=== PATIENT | female | born 1995 | race Caucasian/White ===

== ENCOUNTER → 2017-05-23 19:50 | Observation (INO) ==
[2017-05-23 17:33] LABS: Bilirubin,Urine Negative (Negative); Blood,Urine Small (Negative); Clarity,Urine Cloudy (Clear); Color,Urine Yellow (Yellow); Glucose,Urine (UA) Normal (Normal); Ketones,Urine Negative (Negative); Leukocyte Esterase,Urine Large (Negative); Nitrite,Urine Negative (Negative); PH,Urine 6.5 pH Units (5.0-8.0); Protein,Urine 30 mg/dL (Neg-Trace); Specific Gravity,Urine 1.023 (1.010-1.025); Urobilinogen,Urine Normal (Normal)
[2017-05-23 17:35] LABS: Bacteria,Urine Moderate per hpf (None-Few); Hyaline Casts,Urine None Seen per lpf (None-Few); Squamous Epithelial Cell,Urine Many per lpf (None-Few); WBC,Urine 15-30 per hpf (0-3)
[2017-05-23 17:38] LABS: Amphetamine Screen,Urine Negative ng/mL (Cutoff=1000); Barbiturate Screen,Urine Negative ng/mL (Cutoff=200); Benzodiazepines Screen,Urine Negative ng/mL (Cutoff=200); Cannabinoid Screen,Urine Negative ng/mL (Cutoff = 50); Cocaine Screen,Urine Negative ng/mL (Cutoff= 300); Opiate Screen,Urine Negative ng/mL (Cutoff=300); Phencyclidine Screen,Urine Negative ng/mL (Cutoff=25)
[2017-05-23 18:23] LABS: Basophils # 0.1 K/mcL (0.0-0.2); Basophils % 0.7 %; Eosinophils # 0.4 K/mcL (0.0-0.6); Eosinophils % 2.9 %; Hematocrit 36.3 % (35.3-44.9); Hemoglobin 11.8 g/dL (11.5-15.4); Immature Granulocytes % 1.1 % (0-4); Lymphocytes # 3.1 K/mcL (0.6-4.6); Lymphocytes % 20.7 %; Mean Corpuscular HGB Conc 32.5 g/dL (31.6-35.5); Mean Corpuscular Hemoglobin 28.2 pg (28.0-33.3); Mean Corpuscular Volume 86.6 fL (83.0-100.0); Monocytes # 1.6 K/mcL (0.0-1.3); Monocytes % 10.4 %; Neutrophils # 9.6 K/mcL (1.6-8.9); Platelet Count 284 K/mcL (140-400); Red Blood Count 4.19 M/mcL (3.82-4.97); Red Cell Distribution Width 13.4 % (11.5-14.5); Segmented Neutrophils % 64.2 %
--- NOTE | 2017-05-23 18:36 | OB/GYN Progress Note ---
Date of Encounter: 05/23/17 Time of Encounter: 18:34 - Assessment and Plan (1) 34 weeks gestation of Current Visit: No Status: Acute Admitted for observation for PTL (2) Abdominal pain affecting Current Visit: No Status: Acute labor evaluation (3) Non-stress test reactive Current Visit: No Status: Acute 135 bpm, moderate variability, + 15x15 accels, no decels. (4) UTI (urinary tract infection) in in third trimester Current Visit: Yes Status: Acute CBC drawn, Rx given for Macrobid (5) Dehydration during Current Visit: Yes Status: Acute IV fluid bolus Subjective - Subjective Principal diagnosis: 34 wks contractions and decreased movement Interval history: Pt is a at 34w4d admitted with complaint of decreased movement. States she has only felt 5-6 movements since yesterday. Also reports contractions. Denies leakage of fluid and vaginal bleeding. Patient reports urinary frequency and history of UTI. Antepartum ROS: contractions, no loss of fluid, no vaginal bleeding Objective - Exam FHR: auscultation normal, category 1 FHR comments: 130 bpm, moderate variaibility, + 15x15 accels, no decels. Category I tracing Auscultation: bilateral: normal Abdomen: Present: normal appearance, soft, gravid Uterus: Present: normal Cervical dilation: Closed Cervix effacement: thick - Labs Labs: Abnormal lab results WBC 14.9 K/mcL (4.3-11.1) H 05/23/17 18:16 Neutrophils # 9.6 K/mcL (1.6-8.9) H 05/23/17 18:16 Monocytes # 1.6 K/mcL (0.0-1.3) H 05/23/17 18:16 Urine Clarity Cloudy (Clear) A 05/23/17 17:20 Urine Protein 30 mg/dL (Neg-Trace) H 05/23/17 17:20 Urine Blood Small (Negative) H 05/23/17 17:20 Ur Leukocyte Esterase Large (Negative) H 05/23/17 17:20 Urine Microscopic RBC 3-5 per hpf (0-3) H 05/23/17 17:20 Urine Microscopic WBC 15-30 per hpf (0-3) H 05/23/17 17:20 Ur Squamous Epith Cells Many per lpf (None-Few) H 05/23/17 17:20 Urine Bacteria Moderate per hpf (None-Few) H 05/23/17 17:20 Ur Culture Indicated? YES (NO) A 05/23/17 17:20
--- NOTE | 2017-05-23 19:26 | Discharge Summary ---
Date of Encounter: 05/23/17 Time of Encounter: 19:26 - Discharge Diagnosis (1) 34 weeks gestation of Priority: Primary Status: Acute Comments: admitted for observation (2) Abdominal pain affecting Priority: Secondary Status: Acute Comments: false labor (3) Non-stress test reactive Priority: Secondary Status: Acute Comments: 140 bpm moderate variability +15x15 accels no decels noted. Irregular contractions noted (4) UTI (urinary tract infection) in in third trimester Priority: Secondary Status: Acute Comments: RX for macrobid (5) Dehydration during Priority: Secondary Status: Acute Comments: IV hydration Encouraged increase in PO fluids - Discharge Medications Prescriptions: Nitrofurantoin Monohyd/M-Cryst [Macrobid 100 mg Capsule] 100 mg PO BID #14 capsule Home Medications: Vit/FA 1 each PO DAILY 07/21/15 [History] Nitrofurantoin Monohyd/M-Cryst [Macrobid 100 mg Capsule] 100 mg PO BID #14 capsule 05/23/17 [Rx] Allergies/Adverse Reactions: 3 Allergy/AdvReac Type Severity Reaction Status Date / Time chocolate flavor Allergy Diarrhea Verified 05/03/17 16:28 Data Procedures and tests throughout hospitalization: Laboratory Tests 05/23/17 05/23/17 05/23/17 17:20 17:20 18:16 WBC 14.9 H RBC 4.19 Hgb 11.8 Hct 36.3 MCV 86.6 MCH 28.2 MCHC 32.5 RDW 13.4 Plt Count 284 MPV 10.0 Immature Gran % 1.1 Seg Neutrophils % 64.2 Lymphocytes % 20.7 Monocytes % 10.4 Eosinophils % 2.9 Basophils % 0.7 Neutrophils # 9.6 H Lymphocytes # 3.1 Monocytes # 1.6 H Eosinophils # 0.4 Basophils # 0.1 Urine Color Yellow Urine Clarity Cloudy A Urine pH 6.[address] 1.023 Urine Protein 30 H Urine Glucose (UA) Normal Urine Ketones Negative Urine Blood Small H Urine Nitrite Negative Urine Bilirubin Negative Urine Urobilinogen Normal Ur Leukocyte Esterase Large H Urine Microscopic RBC 3-5 H Urine Microscopic WBC 15-30 H Ur Squamous Epith Cells Many H Urine Bacteria Moderate H Hyaline Casts None Seen Ur Culture Indicated? YES A Urine Opiates Screen Negative Ur Barbiturates Screen Negative Ur Phencyclidine Scrn Negative Ur Amphetamines Screen Negative U Benzodiazepines Scrn Negative Urine Cocaine Screen Negative U Marijuana (THC) Screen Negative Labs on day of discharge: Labs from last 24 hours 05/23/17 05/23/17 05/23/17 18:16 17:20 17:20 WBC 14.9 H RBC 4.19 Hgb 11.8 Hct 36.3 MCV 86.6 MCH 28.2 MCHC 32.5 RDW 13.4 Plt Count 284 MPV 10.0 Immature Gran % 1.1 Seg Neutrophils % 64.2 Lymphocytes % 20.7 Monocytes % 10.4 Eosinophils % 2.9 Basophils % 0.7 Neutrophils # 9.6 H Lymphocytes # 3.1 Monocytes # 1.6 H Eosinophils # 0.4 Basophils # 0.1 Urine Color Yellow Urine Clarity Cloudy A Urine pH 6.[address] 1.023 Urine Protein 30 H Urine Glucose (UA) Normal Urine Ketones Negative Urine Blood Small H Urine Nitrite Negative Urine Bilirubin Negative Urine Urobilinogen Normal Ur Leukocyte Esterase Large H Urine Microscopic RBC 3-5 H Urine Microscopic WBC 15-30 H Ur Squamous Epith Cells Many H Urine Bacteria Moderate H Hyaline Casts None Seen Ur Culture Indicated? YES A Urine Opiates Screen Negative Ur Barbiturates Screen Negative Ur Phencyclidine Scrn Negative Ur Amphetamines Screen Negative U Benzodiazepines Scrn Negative Urine Cocaine Screen Negative U Marijuana (THC) Screen Negative Date of admission: 05/23/17 16:54 Primary care physician: PCP NONE Discharging clinician: Judith Gauthier Anticipated date of discharge: 05/23/17 - Patient Status Disposition: Home, Self-Care Condition: Good Functional capacity at discharge: independent ambulation - Discharge Instructions Follow Up With: NONE,PCP [Primary Care Provider] - Keren Stout CNM [Non-Partnered Physician] - - Diet and Activity Activity: increase activity as tolerated Diet: regular diet Hospital Course BOOK CRITIC Time Attestation: Total time spent providing and/or coordinating discharge services: Time Spent: Less than 30 minutes Exam - Constitutional General appearance IM: A&O X 3, pleasant, no acute distress, answers questions appropriately - Other Additional findings: FHR 140 bpm moderate variability +15x15 accels no decels noted. Irregular contractions noted. SVE closed/thick/high - VTE Reasons for not Prescribing Prophylaxis: Treatment not Indicated - Low risk for VTE
[~2017-05-23 19:50] MED LIST: Nitrofurantoin (BID) 100 MG CAPSULE PO SCH; Ringers Solution, Lactated 1,000 ML IVC SCH; Ringers Solution, Lactated 1,000 ML ONE
== END | disposition home or self-care (01) ==
LOC: 1NENULAB
PROVIDERS: ADMIT Obstetrics & Gynecology; ATTEND Obstetrics & Gynecology

== ENCOUNTER → 2017-05-30 03:34 | Observation (INO) ==
[2017-05-30 01:44] LABS: Amphetamine Screen,Urine Negative ng/mL (Cutoff=1000); Barbiturate Screen,Urine Negative ng/mL (Cutoff=200); Benzodiazepines Screen,Urine Negative ng/mL (Cutoff=200); Cannabinoid Screen,Urine Negative ng/mL (Cutoff = 50); Cocaine Screen,Urine Negative ng/mL (Cutoff= 300); Opiate Screen,Urine Negative ng/mL (Cutoff=300); Phencyclidine Screen,Urine Negative ng/mL (Cutoff=25)
--- NOTE | 2017-05-30 01:59 | OB/GYN History & Physical ---
Date of Encounter: 05/30/17 Time of Encounter: 01:55 Assessment and Plan (1) 35 weeks gestation of Current visit: Yes Status: Acute admitted for observation (2) contractions Current visit: Yes Status: Acute patient here for labor evaluation History of Present Illness Chief complaint: Contractions HPI: Ms. Whitney is a 22 year old female at 35w4d presents to labor and delivery with complaints of contractions that started earlier this evening. Patient reports contractions were 10 min apart and now are 3-5 min apart. Patient denies LOF or VB. Patient reports +FM. Patient denies any fevers, headache or chills. Patient denies vaginal itching or burning but reports she is currently being treated for UTI and is on Macrobid. Patient states she has one more day of medication. Past Med Surg Social Fam HX - Past Medical History Medical history: no medical history Psychiatric history: anxiety - Past Surgical History Surgical History: no surgical history - Social History Smoking Status: Current every day smoker Smokeless Tobacco Status: No Alcohol use: none Drug use: none Current living situation: Home - Independent Activity Level: Independent ambulation Recent Out of Country Travel Within the Last 8 Weeks: No Exposure or Possible Exposure to Illness During Travel: No - Family History Mother Adopted: No Family Member Ethnicity: Non- Living Status: Still Living Hx Family Cardiac Disorders: No Hx Family Respiratory Disorders: No Hx Family Cancer: No Hx Family GI Disorders: No Hx Family Endocrine Disorder: No Hx Family Neuromuscular Disorders: No Hx Family Neurologic Disorders: No Hx Family HEENT Disorders: No Hx Family Autoimmune Disorders: No Obstetrical History - Pregnancies : 3 Para: 2 Term: 2 : 0 Ab's: 0 Livin Medications and Allergies Vit/FA 1 each PO DAILY 07/21/15 [History] Nitrofurantoin Monohyd/M-Cryst [Macrobid 100 mg Capsule] 100 mg PO BID #14 capsule 05/23/17 [Rx] 3 Allergy/AdvReac Type Severity Reaction Status Date / Time chocolate flavor Allergy Diarrhea Verified 05/03/17 16:28 Review of System OB - Constitutional Constitutional ROS IM: no chills, no fever(s), no headache(s) - Cardiovascular Cardiovascular: no chest pain, no palpitations, no rapid heart rate, no slow heart rate, no syncope - Respiratory Respiratory: no cough - Gastrointestinal Gastrointestinal: no constipation, no cramping, no diarrhea, no heartburn, no nausea, no vomiting - Genitourinary Genitourinary: no dysuria, no flank pain, no urinary frequency, no urinary hesitancy, no urinary incontinence, no urinary urgency, no vaginal discharge, no vaginal odor, no vaginal pruritis Exam - Constitutional Constitutional: well developed, well nourished, no acute distress, average body habitus - HEENT HEENT: Normocephaly, Mucus Membranes Moist - Neck Neck exam: full ROM, supple - Lungs Respiratory exam: CTAB - Cardiovascular Cardiovascular exam: RRR, +S1, +S2 - Abdomen Abdomen: Present: bowel sounds normal, gravid, non tender - Extremities Extremities exam: full ROM, normal capillary refill, normal inspection Deep Tendon Reflex Grade: 2+ Normal - Cervix Dilation: 2 (2.5 per RN) Effacement: 80 Station: -3 - Uterus Uterus exam: Present: normal size, normal contour - Anus/Rectum Anus/Rectum: Present: normal perianal skin - Comments Comments: FHR 135 bpm moderate variability +15x15 accels no decels noted. Cat 1 tracing. Contractions 2-3 min apart Results All other labs normal. - VTE Reasons for not Prescribing Prophylaxis: Treatment not Indicated - Low risk for VTE
[2017-05-30 02:57] LABS: Candida DNA ***DETECTED*** (Not Detect); Gardnerella DNA ***DETECTED*** (Not Detect); Trichomonas DNA Not Detected (Not Detect)
--- NOTE | 2017-05-30 03:19 | Discharge Summary ---
Date of Encounter: 05/30/17 Time of Encounter: 03:18 - Discharge Diagnosis (1) 35 weeks gestation of Priority: Primary Status: Acute (2) contractions Priority: Secondary Status: Acute (3) NST (non-stress test) reactive on surveillance Priority: Secondary Status: Acute Comments: baseline 135 bpm moderate variability +15x15 accels no decel noted. - Discharge Medications Prescriptions: metroNIDAZOLE [Flagyl] 500 mg PO BID 7 Days #14 tablet Terconazole [Terazol 3] 20 gm VG HS 3 Days #1 cream.appl Home Medications: Vit/FA 1 each PO DAILY 07/21/15 [History] Nitrofurantoin Monohyd/M-Cryst [Macrobid 100 mg Capsule] 100 mg PO BID #14 capsule 05/23/17 [Rx] Terconazole [Terazol 3] 20 gm VG HS 3 Days #1 cream.appl 05/30/17 [Rx] metroNIDAZOLE [Flagyl] 500 mg PO BID 7 Days #14 tablet 05/30/17 [Rx] Allergies/Adverse Reactions: 3 Allergy/AdvReac Type Severity Reaction Status Date / Time chocolate flavor Allergy Diarrhea Verified 05/03/17 16:28 Data Procedures and tests throughout hospitalization: Laboratory Tests 05/30/17 05/30/17 01:00 02:00 Urine Opiates Screen Negative Ur Barbiturates Screen Negative Ur Phencyclidine Scrn Negative Ur Amphetamines Screen Negative U Benzodiazepines Scrn Negative Urine Cocaine Screen Negative U Marijuana (THC) Screen Negative Ursula species DNA DETECTED A Gardnerella DNA Probe DETECTED A Trichomonas DNA Probe Not Detected Labs on day of discharge: Labs from last 24 hours 05/30/17 05/30/17 02:00 01:00 Urine Opiates Screen Negative Ur Barbiturates Screen Negative Ur Phencyclidine Scrn Negative Ur Amphetamines Screen Negative U Benzodiazepines Scrn Negative Urine Cocaine Screen Negative U Marijuana (THC) Screen Negative Ursula species DNA DETECTED A Gardnerella DNA Probe DETECTED A Trichomonas DNA Probe Not Detected Date of admission: 05/30/17 00:57 Discharging clinician: Judith Gauthier Anticipated date of discharge: 05/30/17 - Patient Status Disposition: Home, Self-Care Condition: Good Functional capacity at discharge: independent ambulation - Discharge Instructions Follow Up With: Judith Gauthier CNM [Non-Partnered Physician] - - Diet and Activity Activity: increase activity as tolerated Diet: regular diet Hospital Course CARD CLOTHIER Time Attestation: Total time spent providing and/or coordinating discharge services: Time Spent: Less than 30 minutes Exam - Constitutional General appearance IM: A&O X 3, pleasant, answers questions appropriately - Other Additional findings: FHR 135 bpm moderate variability +15x15 accels no decels noted. Contraction irregular. - VTE Reasons for not Prescribing Prophylaxis: Treatment not Indicated - Low risk for VTE
== END | disposition home or self-care (01) ==
LOC: 1NENULAB
PROVIDERS: ADMIT Obstetrics & Gynecology; ATTEND Obstetrics & Gynecology

== ENCOUNTER → 2017-06-06 02:55 | Observation (INO) ==
[2017-06-05 22:30] LABS: Amphetamine Screen,Urine Negative ng/mL (Cutoff=1000); Barbiturate Screen,Urine Negative ng/mL (Cutoff=200); Benzodiazepines Screen,Urine Negative ng/mL (Cutoff=200); Cannabinoid Screen,Urine Negative ng/mL (Cutoff = 50); Cocaine Screen,Urine Negative ng/mL (Cutoff= 300); Opiate Screen,Urine Negative ng/mL (Cutoff=300); Phencyclidine Screen,Urine Negative ng/mL (Cutoff=25)
--- NOTE | 2017-06-05 22:44 | OB/GYN History & Physical ---
Date of Encounter: 06/06/17 Time of Encounter: 22:30 Assessment and Plan (1) 36 weeks gestation of Current visit: No Status: Acute (2) Uterine contractions Current visit: Yes Status: Acute Patient is 2-3 cm dilated upon arrival. Contractions have been 3-4 minutes apart. Pt did make cervical change to 4cm, however on exam one hour later no further cervical change and patient sleeping in room when CNM came to perform exam. Offered for patient to stay and continue to be observed. Pt states she would like to go home. Discharged to home with when to return instructions. History of Present Illness Chief complaint: Contractions HPI: Ms. Whitney is a 22 year old female at 36 3/7 wks gestation that presents for labor evaluation. Patient says that she has been feeling contractions that have been 4-6 min apart since 7 pm today. She admits to having movement, but says that they have been decreased. She denies any vaginal fluid leakage or bleeding. She admits to nausea, but denies vomiting. She denies headaches, vision changes, chest pain, fever, dysuria, or diarrhea. GBS: negative HepBSAb: non-reactive (12/13/16) HIV Ag/Ab: non-reactive T. pallidum: negative Rubella Ab: positive Varicella Ab: positive Blood type: A+ All other labs negative Past Med Surg Social Fam HX - Past Medical History Medical history: no medical history Psychiatric history: anxiety - Past Surgical History Surgical History: no surgical history - Social History Smoking Status: Current every day smoker Packs per day: 0.25 Smokeless Tobacco Status: No Alcohol use: none Drug use: none - Family History Mother Adopted: No Family Member Ethnicity: Non- Living Status: Still Living Hx Family Cardiac Disorders: No Hx Family Respiratory Disorders: No Hx Family Cancer: No Hx Family GI Disorders: No Hx Family Endocrine Disorder: No Hx Family Neuromuscular Disorders: No Hx Family Neurologic Disorders: No Hx Family HEENT Disorders: No Hx Family Autoimmune Disorders: No Obstetrical History - Pregnancies : 3 Para: 2 Term: 2 : 0 Ab's: 0 Livin Medications and Allergies Vit/FA 1 each PO DAILY 07/21/15 [History] 3 Allergy/AdvReac Type Severity Reaction Status Date / Time chocolate flavor Allergy Anaphylaxis Verified 06/05/17 22:04 Exam - Vital Signs Vital signs: BP: 120/76 Pulse: 114 FHR: 138 [place]: 66 - Constitutional Constitutional: well developed, well nourished, no acute distress, average body habitus - HEENT HEENT: PERRL, Mucus Membranes Moist - Neck Neck exam: normal inspection, trachea midline - Lungs Respiratory exam: CTAB - Cardiovascular Cardiovascular exam: +S1, +S2, tachycardia - Abdomen Abdomen: Present: bowel sounds normal, gravid, non tender - Extremities Extremities exam: full ROM, normal inspection, radial pulses palpable and symmetrical Deep Tendon Reflex Grade: 2+ Normal - Cervix Dilation: 2 (2-3 cm per nurse) Results All other labs normal. - VTE Reasons for not Prescribing Prophylaxis: Treatment not Indicated - Low risk for VTE
== END | disposition home or self-care (01) ==
LOC: 1NENULAB
PROVIDERS: ADMIT Advanced Practice Midwife; ATTEND Advanced Practice Midwife

== ENCOUNTER → 2017-06-07 08:55 | Observation (INO) ==
[2017-06-07 01:04] LABS: Amphetamine Screen,Urine Negative ng/mL (Cutoff=1000); Barbiturate Screen,Urine Negative ng/mL (Cutoff=200); Benzodiazepines Screen,Urine Negative ng/mL (Cutoff=200); Cannabinoid Screen,Urine Negative ng/mL (Cutoff = 50); Cocaine Screen,Urine Negative ng/mL (Cutoff= 300); Opiate Screen,Urine Negative ng/mL (Cutoff=300); Phencyclidine Screen,Urine Negative ng/mL (Cutoff=25)
--- NOTE | 2017-06-07 03:38 | OB/GYN Progress Note ---
Date of Encounter: 06/07/17 Time of Encounter: 03:35 - Assessment and Plan (1) 36 weeks gestation of Current Visit: No Status: Acute Patient admitted for observation for labor evaluation (2) Non-stress test reactive Current Visit: No Status: Acute baseline 135 bpm moderate variability +15x15 accels no decels noted. Cat. 1 tracing Subjective - Subjective Principal diagnosis: Contractions Interval history: Patient is a 22 y/o at 36w5d presents to labor and delivery with complaints of contractions that started after intercourse this evening. Patient reports +FM, denies LOF or VB. Patient was dilated 4/80% per RN on admission. Antepartum ROS: movement normal, no loss of fluid, no vaginal bleeding, no contractions Objective - Vital Signs Vital Signs: Intake and Output 06/06/17 06/06/17 06/07/17 15:59 23:59 07:59 Other: Weight 90 kg Patient Weight 06/07/17 23:59 Weight 90 kg - Exam FHR: auscultation normal, category 1 FHR comments: 135 bpm moderate variability +15x15 accels no decels noted. Cat. 1 tracing. Contractions 2-4 min apart. Cervical dilation: 4 Cervix effacement: 80
== END | disposition home or self-care (01) ==
LOC: 1NENULAB
PROVIDERS: ADMIT Obstetrics & Gynecology; ATTEND Obstetrics & Gynecology

== ENCOUNTER 2017-06-09 11:01 | Inpatient (IN) ==
[2017-06-09] MEDS ORDERED: Naloxone 0.4 MG/ML INJ IVP PRN (11:44)
[2017-06-09] MEDS ORDERED: Ondansetron 4 MG/2 ML VIAL IVP PRN (11:44)
[2017-06-09] MEDS ORDERED: Famotidine 20 MG/2 ML VIAL IVP PRN (11:44)
[2017-06-09] MEDS ORDERED: Ringers Solution, Lactated 1,000 ML IVC SCH (11:45)
[2017-06-09] MEDS ORDERED: *HR* Nalbuphine 20 MG/ML AMPUL IVP PRN (11:46)
[2017-06-09] MEDS ORDERED: Ringers Solution, Lactated 1,000 ML ONE (11:51)
--- NOTE | 2017-06-09 11:52 | OB/GYN History & Physical ---
Date of Encounter: 06/09/17 Time of Encounter: 11:49 Assessment and Plan (1) 37 weeks gestation of Current visit: Yes Status: Acute Admitted for spontaneous labor. 6 cm on arrival. Epidural when patient requests (2) Spontaneous onset of labor Current visit: No Status: Acute and contraction monitoring. Labor management History of Present Illness Chief complaint: Spontaneous labor at 37w0d HPI: Ms. Whitney is a 22 year old female at 37w0d here with complaints of labor. Pt 6 cm on arrival, admitted for labor. Pt reports positive movement, denies LOF, reports spotting for the past two days. Patient requests epidural at earliest availability. Blood type A+ GBS neg T.pal negative HbSAG negative Rubella and Varicella Immune Past Med Surg Social Fam HX - Past Medical History Source: patient Medical history: no medical history Psychiatric history: anxiety - Past Surgical History Surgical History: no surgical history - Social History Smoking Status: Current every day smoker Smokeless Tobacco Status: No Alcohol use: none Drug use: none Current living situation: Home - Independent Activity Level: Independent ambulation Recent Out of Country Travel Within the Last 8 Weeks: No Exposure or Possible Exposure to Illness During Travel: No - Family History Father Living Status: Hx Family Cardiac Disorders: Yes Mother Adopted: No Family Member Ethnicity: Non- Living Status: Still Living Hx Family Cardiac Disorders: No Hx Family Respiratory Disorders: No Hx Family Cancer: No Hx Family GI Disorders: No Hx Family Endocrine Disorder: No Hx Family Neuromuscular Disorders: No Hx Family Neurologic Disorders: No Hx Family HEENT Disorders: No Hx Family Autoimmune Disorders: No Obstetrical History - Pregnancies : 3 Para: 2 Term: 2 : 0 Ab's: 0 Livin Medications and Allergies Vit/FA 1 each PO DAILY 07/21/15 [History] 3 Allergy/AdvReac Type Severity Reaction Status Date / Time chocolate flavor Allergy Anaphylaxis Verified 06/05/17 22:04 Review of System OB All systems PM: reviewed and no additional remarkable complaints except as stated Exam - Constitutional Constitutional: well developed, well nourished, no acute distress - Neck Neck exam: full ROM - Lungs Respiratory exam: CTAB - Cardiovascular Cardiovascular exam: RRR, +S1, +S2 - Breasts Breast: bilateral: normal - Abdomen Abdomen: Present: bowel sounds normal, gravid, non tender - Extremities Extremities exam: full ROM, normal capillary refill, normal inspection - Vulva Vulva: bilateral: normal - Vagina Vagina: Present: normal moisture - Cervix Dilation: 6 (Per RN) Effacement: 100 Station: -1 - Uterus Uterus exam: Present: normal size - Comments Comments: FHR 150 bpm, moderate variability, +15x15 accels, no decels. Category I tracing. Results All other labs normal. - VTE Reasons for not Prescribing Prophylaxis: Treatment not Indicated - Low risk for VTE
[2017-06-09 11:56] LABS: Basophils # 0.1 K/mcL (0.0-0.2); Basophils % 0.6 %; Eosinophils # 0.4 K/mcL (0.0-0.6); Eosinophils % 1.9 %; Hematocrit 35.4 % (35.3-44.9); Hemoglobin 11.7 g/dL (11.5-15.4); Lymphocytes # 2.7 K/mcL (0.6-4.6); Lymphocytes % 14.2 %; Mean Corpuscular HGB Conc 33.1 g/dL (31.6-35.5); Mean Corpuscular Hemoglobin 28.3 pg (28.0-33.3); Mean Corpuscular Volume 85.7 fL (83.0-100.0); Mean Platelet Volume 10.3 fL (9.4-12.4); Monocytes # 1.7 K/mcL (0.0-1.3); Platelet Count 230 K/mcL (140-400); Red Blood Count 4.13 M/mcL (3.82-4.97); Red Cell Distribution Width 13.5 % (11.5-14.5); Segmented Neutrophils % 73.3 %
[2017-06-09 12:04] LABS: Amphetamine Screen,Urine Negative ng/mL (Cutoff=1000); Barbiturate Screen,Urine Negative ng/mL (Cutoff=200); Benzodiazepines Screen,Urine Negative ng/mL (Cutoff=200); Cannabinoid Screen,Urine Negative ng/mL (Cutoff = 50); Cocaine Screen,Urine Negative ng/mL (Cutoff= 300); Opiate Screen,Urine Negative ng/mL (Cutoff=300); Phencyclidine Screen,Urine Negative ng/mL (Cutoff=25)
[2017-06-09] MEDS ORDERED: *HR* FentaNYL (PF) 100 MCG/2 ML VIAL EP ONE (12:43)
[2017-06-09] MEDS ORDERED: *HR* Ropivacaine/PF 0.2% 10 ML AMPUL EP ONE (12:43)
[2017-06-09] MEDS ORDERED: Epidural Premix (fent/bupiv) 110 ML EP SCH (12:45)
--- NOTE | 2017-06-09 12:46 | Anesthesia Evaluation PreOp ---
Date of Encounter: 06/09/17 Time of Encounter: 12:44 - Past History Planned Operation: zachary Cardiac History: Denies any Significant Hx Pulmonary History: Smoker, Pack/yr (10) [employer]ESSIONAL [employer] History: Denies Any Significant HX Other Medical History: GERD Anesthesia History: No Prior Anesthetic Complications, Past Anesthesia (zachary x 2) : Yes Test: Positive Alcohol Use: none Drug use: none Medications and Allergies Vit/FA 1 each PO DAILY 07/21/15 [History] 3 Allergy/AdvReac Type Severity Reaction Status Date / Time chocolate flavor Allergy Anaphylaxis Verified 06/05/17 22:04 - Meds/Allergy Pre-op Review Medications Reviewed: Yes Allergies Reviewed: Yes Beta Blockers on Current Med List: No Anesthesia Results - Labs 06/09/17 11:48 Anesthesia Exam 116/81 108 16 fht 160 Height: 5'2" Weight: 90 k NPO (# of Hours): 3 Pain Scale: 7 Pain Scale Used: Numeric (1 - 10) - HEENT Pupil (Motor): Pupils equal Mallampati: III Teeth: Normal Oral Opening: Greater than 3 - PROFESSIONAL [employer] LOC: Oriented [employer] Motor: Normal RUE, Normal LUE, Normal RLE, Normal LLE, Normal Face [employer] Sensory: Normal: RUE, LUE, RLE, LLE, Face - Cardiac Rhythm: Regular Murmur: None - Pulmonary Breath Sounds: bilateral Clear Respiratory Effort: Symmetrical Anesthesia Assess/Plan ASA Score: 2 Modified Chaitanya Scale for Level of Consciousness: Cooperative, oriented, and tranquil Anesthetic Plan: Regional Autologous Blood: No Monitoring Plan: Standard Monitors Recovery Plan: Other (risks discussed, questions answered, consented)
[2017-06-09] MEDS ORDERED: Epidural Premix (fent/bupiv) 110 ML EP ONE (12:48)
[2017-06-09] MEDS ORDERED: *HR* Ropivacaine/PF 0.2% 10 ML AMPUL ONE (12:48)
[2017-06-09] MEDS ORDERED: *HR* FentaNYL (PF) 100 MCG/2 ML VIAL ONE (12:48)
--- NOTE | 2017-06-09 13:09 | Anesthesia Procedures ---
Date of Encounter: 06/09/17 Time of Encounter: 13:06 Procedures: Anesthesia - Epidural/Spinal Patient ID/Chart reviewed: Yes Patient examined: Yes OB Eval: Gestational age: 39 OB Eval: : 3 OB Eval: Hx Para: 2 OB Eval: Dilated at (cm): 6 OB Eval: Contractions: Non-stressed pattern Consent Obtained: Yes Supplemental Oxygen: None/Room Air Site Prep: Aseptic Technique, Sterile prep and drape, 0.5% Chlorhexidine/Alcohol Patient position: upright Local Anesthetic: Lidocaine 1% Amount of Local Anesthetic used: 3 Touhy Needle Gauge: 18 Touhy Needle Depth (cm): 7 Catheter Depth at Skin (cm): 15 Test Dose (1.5% Lido + Epi): Volume given (mls): 3 Test Dose Result: Negative Loading Dose: Fentanyl (mcg): 100 Loading Dose: Other: ropivicaine 0.2% 10cc Loading Dose Administered: Thru Touhy Needle Infusion Med: 0.125% Bupivacaine w/ 2 mcg/ml Fentanyl Infusion Rate (mls/hr): 15 (pcea 5 cc q 30") Catheter Secured in Place: Tegaderm Interspace Used: L2-L3 Loss of Resistance (IVET): Yes Blood: No CSF: No Paresthesia: No Procedure: aseptic, tolerated well, vss, effective Vitals + FHT's: 118/78 106 16 fht 133
--- NOTE | 2017-06-09 13:44 | OB Labor Progress Note ---
Date of Encounter: 06/09/17 Time of Encounter: 13:42 Labor Progress Note - Subjective Subjective: Patient resting in bed after epidural placement. Denies pain at this time. - Cervix Cervix: 6/100/-1 - Heart Tones Heart Tones: 140 bpm, moderate variability, + 15x15 accels, early decels. Category I tracing. - [place]: 2-3 min apart - Interventions Interventions: SVE, AROM for moderate amount of clear fluid. - Plan Plan: Continue labor management
[2017-06-09] MEDS ORDERED: EPHEDrine 50 MG/ML VIAL ONE (15:12)
--- NOTE | 2017-06-09 17:39 | OB/GYN Procedure Note ---
Delivery - Delivery Date: 06/09/17 Provider: Judith Gauthier ([facility]) Intrapartum events: none Delivery augmentation: rupture of membranes Delivery monitor: external FHT, external uterine Anesthesia: epidural Estimated Blood Loss: 350 - Infant (s) Infant A Infant Delivery Date: 06/09/17 Infant Delivery Time: 16:47 Presentation: vertex Position: OP Route of delivery: Gender: Female Viability: Viable Pounds: 7 Ounces: 3 Weight Gram: 3.26 kg at 1 minute: 8 at 5 mins: 9 Shoulder Dystocia: not encountered Specimens collected: cord blood Placenta: spontaneous Cord: 3 umbilical vessels - Repair Episiotomy: none Laceration Description: Periurethral (bilateral periurethral), Perineal - 1st Degree, Labial - Complications Delivery complications: none Delivery comments: Called to delivery room for patient feeling pressure and needing to push. Patient was completely dilated and +2 station. Initiated pushing and under maternal effort, patient spontaneously delivered a viable female infant over a 1st degree perineal laceration. Infant placed on maternal abdomen. 1st degree laceration repaired with 3-0 Vicryl. Bilateral periurethral lacerations noted, left periurethral repaired with 4-0 Vicryl, others hemostatic and not repaired. Left labial laceration repaired with 4-0 Vicryl. Cord clamped and cut after pulsation ceased. Spontaneous delivery of intact placenta, 3 umbilical vessels. No shoulder dystocia or meconium encountered. EBL 350 mL. Fundus firm at u/2. Mother and infant in stable condition for 2 hour recovery all counts correct. - Disposition Mom disposition: stable in LDR disposition: stable in LDR
[2017-06-09] MEDS: Oxytocin 20 units/ LR 1000 mL 20 UNIT/1,000 ML BAG IVC ONE ×2 (18:00→19:19)
[2017-06-09] MEDS ORDERED: Oxytocin 20 units/ LR 1000 mL 20 UNIT/1,000 ML BAG IVC ONE (19:17)
[2017-06-09] MEDS ORDERED: Benzocaine/Menthol 56 GM AEROSOL SPRAY TP PRN (20:50)
[2017-06-09] MEDS ORDERED: *HR* HYDROcodone/Acet 5/325 mg TABLET PO PRN (20:50)
[2017-06-09] MEDS ORDERED: Acetaminophen 325 MG TABLET PO PRN (20:50)
[2017-06-09] MEDS ORDERED: Lanolin 7 G OINT...G. TP PRN (20:50)
[2017-06-09] MEDS ORDERED: Oxytocin 20 units/ LR 1000 mL 20 UNIT/1,000 ML BAG IVC SCH (20:50)
[2017-06-09] MEDS: Ibuprofen 600 MG TABLET PO PRN (21:59)
[2017-06-10] MEDS ORDERED: Prenatal Vit/FA 1 EACH TABLET PO SCH (09:00)
--- NOTE | 2017-06-10 09:05 | Discharge Summary ---
Date of Encounter: 06/10/17 Time of Encounter: 09:03 - Discharge Diagnosis (1) Vaginal delivery Priority: Primary Status: Acute Comments: Patient doing well s/p Vaginal delivery day 1. Pain is well controlled with pain medication as ordered VSS Lochia is light and without clots. Voiding and passing flatus without difficulty Tolerating regular diet Will discharge today (2) Patient is a currently breast-feeding mother Priority: Secondary Status: Acute Comments: Patient is currently breast-feeding - Discharge Medications Prescriptions: Ibuprofen [Motrin] 600 mg PO Q6HR PRN #30 tablet PRN Reason: Cramping Breast Pump [BREAST PUMP] 1 each .ROUTE AD #1 each Docusate [Colace] 100 mg PO BID PRN #20 capsule PRN Reason: Constipation Ferrous Sulfate 325 mg PO DAILY #60 tablet Home Medications: Vit/FA 1 each PO DAILY 07/21/15 [History] Acetaminophen [Tylenol] 650 mg PO Q6HR PRN tablet 06/10/17 [Rx] Benzocaine/Menthol [place] [Dermoplast [place]] 1 appl TP QID PRN aerosol 06/10/17 [Rx] Breast Pump [BREAST PUMP] 1 each .ROUTE AD #1 each 06/10/17 [Rx] Docusate [Colace] 100 mg PO BID PRN #20 capsule 06/10/17 [Rx] Ferrous Sulfate 325 mg PO DAILY #60 tablet 06/10/17 [Rx] Ibuprofen [Motrin] 600 mg PO Q6HR PRN #30 tablet 06/10/17 [Rx] Lanolin [Lansinoh] 1 appl TP TID PRN oint...g. 06/10/17 [Rx] Allergies/Adverse Reactions: 3 Allergy/AdvReac Type Severity Reaction Status Date / Time chocolate flavor Allergy Anaphylaxis Verified 06/05/17 22:04 Data Procedures and tests throughout hospitalization: Laboratory Tests 06/09/17 06/09/17 11:48 11:48 WBC 19.0 H RBC 4.13 Hgb 11.7 Hct 35.4 MCV 85.7 MCH 28.3 MCHC 33.1 RDW 13.5 Plt Count 230 MPV 10.3 Immature Gran % 1.0 Seg Neutrophils % 73.3 Lymphocytes % 14.2 Monocytes % 9.0 Eosinophils % 1.9 Basophils % 0.6 Neutrophils # 14.0 H Lymphocytes # 2.7 Monocytes # 1.7 H Eosinophils # 0.4 Basophils # 0.1 Urine Opiates Screen Negative Ur Barbiturates Screen Negative Ur Phencyclidine Scrn Negative Ur Amphetamines Screen Negative U Benzodiazepines Scrn Negative Urine Cocaine Screen Negative U Marijuana (THC) Screen Negative Labs on day of discharge: Labs from last 24 hours 06/09/17 06/09/17 11:48 11:48 WBC 19.0 H RBC 4.13 Hgb 11.7 Hct 35.4 MCV 85.7 MCH 28.3 MCHC 33.1 RDW 13.5 Plt Count 230 MPV 10.3 Immature Gran % 1.0 Seg Neutrophils % 73.3 Lymphocytes % 14.2 Monocytes % 9.0 Eosinophils % 1.9 Basophils % 0.6 Neutrophils # 14.0 H Lymphocytes # 2.7 Monocytes # 1.7 H Eosinophils # 0.4 Basophils # 0.1 Urine Opiates Screen Negative Ur Barbiturates Screen Negative Ur Phencyclidine Scrn Negative Ur Amphetamines Screen Negative U Benzodiazepines Scrn Negative Urine Cocaine Screen Negative U Marijuana (THC) Screen Negative Date of admission: 06/09/17 11:01 Primary care physician: PCP NONE Consults: 06/09/17 20:50 Consult to Pool Installer [CONS] Routine Comment: Vaginal delivery, consult needed Discharging clinician: Argelia Chaney Anticipated date of discharge: 06/10/17 - Patient Status Disposition: Home, Self-Care Condition: Good Functional capacity at discharge: independent ambulation Overall status at discharge: patient is progressing back to baseline - Discharge Instructions Follow Up With: NONE,PCP [Primary Care Provider] - Judith Gauthier CNM [Non-Partnered Physician] - - Diet and Activity Activity: increase activity as tolerated Diet: regular diet Hospital Course Reason for admission: active labor, IUP at term Delivery: Episiotomy: none Laceration: 1st degree, other (periurethral, l labial) Other procedures: none complications: none Discharge diagnosis: IUP at term delivered [place] baby: female Time Attestation: Total time spent providing and/or coordinating discharge services: Time Spent: Less than 30 minutes Exam - Constitutional Vitals: Temp Pulse Resp BP Pulse Ox 97.8 F 100 18 108/78 95 06/10/17 07:45 06/10/17 07:45 06/10/17 07:45 06/10/17 07:45 06/10/17 03:55 General appearance IM: cooperative, A&O X 3, pleasant - Respiratory Respiratory exam: Present: CTAB - Cardiovascular Cardiovascular exam IM: Present: RRR, +S1, +S2 - GI/Abdominal GI/Abdominal exam IM: normal bowel sounds, soft - Rectal Rectal exam: deferred - Uterine Tone: Firm Uterus Position: At Umbilicus, Midline - Extremities Exam Extremities exam IM: Present: normal capillary refill, normal inspection, radial pulses palpable and symmetrical - Neurological Exam Neurological exam: alert, oriented X3, reflexes normal
[2017-06-10] MEDS: Ibuprofen 600 MG TABLET PO PRN ×2 (09:29→16:16)
[2017-06-10 15:19] VITALS: BP 134/88
== END 2017-06-10 18:30 | disposition home or self-care (01) | DRG 560 ==
LOC: 1NENULAB → OBSVTOIN 11:01 → 1NENUOBS 19:56
PROVIDERS: ADMIT Obstetrics & Gynecology; ATTEND Obstetrics & Gynecology